=== PATIENT | male | born 1975 | race Caucasian/White ===

== ENCOUNTER 2017-01-28 23:25 | Inpatient (IN) | payer MEDICAID ==
[~2017-01-28] VITALS: Ht 182.9 cm; Wt 71.5 kg
[~2017-01-28 23:25] MED LIST: QUET100T PO
[2017-01-29] VITALS (11 sets, daily range): BP systolic 117–138; BP diastolic 66–90
[2017-01-29] MEDS ORDERED: ZOLPIDEM TARTRATE 10 MG TABLET PO PRN (03:00)
[2017-01-29] MEDS ORDERED: QUEtiapine FUMARATE 100 MG TABLET PO PRN (03:00)
[2017-01-29] MEDS: LORazepam 2 MG TABLET PO PRN ×2 (04:00→13:16)
[2017-01-29] MEDS ORDERED: PNEUMOCOCCAL VACCINE POLYVALENT 0.5 ML VIAL [PPSV23] IM ONE (06:15)
[2017-01-29] MEDS: NICOTINE 7 MG/24 HOUR PATCH TD SCH (09:01)
[2017-01-29] MEDS ORDERED: ACETAMINOPHEN 325 MG TABLET PO PRN (10:00)
[2017-01-29] MEDS ORDERED: BACITRACIN 28.4 GM OINTMENT TP PRN (10:00)
[2017-01-29] MEDS ORDERED: IBUPROFEN 600 MG TABLET PO PRN (10:00)
[2017-01-29] MEDS ORDERED: PETROLATUM,WHITE 71 GM JELLY TP PRN (10:00)
[2017-01-29] MEDS ORDERED: ALBUTEROL SULFATE HFA 90 MCG/PUFF 8 GM INHALER IH PRN (10:00)
[2017-01-29] MEDS ORDERED: LOPERAMIDE HCL 2 MG CAPSULE PO PRN (10:00)
[2017-01-29] MEDS ORDERED: ONDANSETRON HCL 4 MG TABLET PO PRN (10:00)
[2017-01-29] MEDS ORDERED: MAG HYDROX/AL HYDROX/SIMETH ES 30 ML SUSPENSION UDCUP PO PRN (10:00)
[2017-01-29] MEDS ORDERED: BENZOCAINE/MENTHOL LOZENGE MM PRN (10:00)
[2017-01-29] MEDS ORDERED: MAGNESIUM HYDROXIDE SUSPENSION 30 ML UDCUP PO PRN (10:00)
[2017-01-29] MEDS ORDERED: CloNIDine HCL 0.1 MG TABLET PO PRN (10:00)
[2017-01-29] MEDS: PHENYLEPHRINE/SHK LV/MIN OIL/PET 57 GM OINTMENT TP PRN (11:17)
[2017-01-29] MEDS: QUEtiapine FUMARATE 200 MG TABLET PO SCH (20:57)
[2017-01-30] MEDS: LORazepam 2 MG TABLET PO PRN ×3 (00:03→15:52)
[2017-01-30 04:00] VITALS: BP 114/74
[2017-01-30 04:26] VITALS: BP 107/67
[2017-01-30 07:00] VITALS: BP 112/78
[2017-01-30 07:16] VITALS: BP 103/65
[2017-01-30] MEDS: NICOTINE 7 MG/24 HOUR PATCH TD SCH (08:12)
[2017-01-30 08:13] VITALS: BP 133/78
[2017-01-30 16:11] VITALS: BP 122/98
[2017-01-30] MEDS: QUEtiapine FUMARATE 200 MG TABLET PO SCH (20:41)
[2017-01-31 01:00] VITALS: BP 116/61
[2017-01-31] MEDS: LORazepam 2 MG TABLET PO PRN ×3 (01:56→16:23)
[2017-01-31] MEDS: PHENYLEPHRINE/SHK LV/MIN OIL/PET 57 GM OINTMENT TP PRN (06:33)
[2017-01-31 08:00] LABS: HEMATOCRIT 42.5 % (41-53); HEMOGLOBIN 13.9 g/dL (13.5-17.5); MEAN CORPUSCULAR HEMOGLOBIN 31.4 pg (26.0-34.0); MEAN CORPUSCULAR HGB CONC 32.6 G/dL (31.0-37.0); MEAN CORPUSCULAR VOLUME 96 fL (80-100); PLATELET COUNT (AUTO) 136 K/uL (150-450); RED BLOOD CELL COUNT(AUTO) 4.41 MIL/uL (4.50-5.90); RED CELL DISTRIBUTION WIDTH 13.2 % (11.5-14.5); WHITE BLOOD COUNT (AUTO) 4.3 K/uL (4.5-11.0)
[2017-01-31 08:35] LABS: BAND NEUTROPHILS % (MANUAL) 5 % (1-5); LYMPHOCYTES % (MANUAL) 50 % (22-44); TOTAL CELLS COUNTED 100
[2017-01-31 08:36] LABS: EOSINOPHILS % (MANUAL) 4 % (1-6); RBC MORPHOLOGY COMMENT NORMAL RBC MORPH
[2017-01-31 08:40] VITALS: BP 120/63
[2017-01-31 08:55] LABS: ANION GAP 7 mmol/L (8-16); CALCIUM, TOTAL 8.6 mg/dL (8.8-10.5); CARBON DIOXIDE 27 mmol/L (22-29); CHLORIDE 106 mmol/L (98-107); CHOL/HDL RATIO 2.3 (4.2-7.3); CREATININE 0.81 mg/dL (0.60-1.30); GLOMERULAR FILTR. RATE CALC > 60 mL/min (>60); PHOSPHORUS 3.8 mg/dL (2.5-4.9); POTASSIUM 3.5 mmol/L (3.5-5.1); SODIUM SERUM 140 mmol/L (136-145); THYROID STIMULATING HORMONE 0.19 uIU/mL (0.36-3.74); UREA NITROGEN, BLOOD 6 mg/dL (7-18)
[2017-01-31] MEDS: NICOTINE 7 MG/24 HOUR PATCH TD SCH (09:00)
[2017-01-31 16:10] VITALS: BP 114/82
[2017-01-31 17:00] VITALS: BP 114/82
== END 2017-01-31 20:00 | disposition home or self-care (01) | DRG 750 ==
LOC: B2S 01-29 03:08
PROVIDERS: ADMIT Psychiatry & Neurology Psychiatry; ATTEND Psychiatry & Neurology Psychiatry
DX: F25.9 Schizoaffective disorder, unspecified (principal); F32.9 Major depressive disorder, single episode, unspecified; F10.10 Alcohol abuse, uncomplicated; F12.90 Cannabis use, unspecified, uncomplicated; F17.200 Nicotine dependence, unspecified, uncomplicated; G47.00 Insomnia, unspecified; J44.9 Chronic obstructive pulmonary disease, unspecified; K64.9 Unspecified hemorrhoids; F41.9 Anxiety disorder, unspecified; Z71.51 Drug abuse counseling and surveillance of drug abuser; Z71.6 Tobacco abuse counseling; Z88.0 Allergy status to penicillin; Z91.012 Allergy to eggs; Z91.011 Allergy to milk products; Z91.010 Allergy to peanuts; Z28.21 Immunization not carried out because of patient refusal
CPT/HCPCS: 82306; 83735; 84100; 84443; 85007; 90471; 99285; J3535